=== PATIENT | female | born 1980 | race Caucasian/White ===

== ENCOUNTER 2017-11-09 14:55 | Emergency (ER) | payer SELFPAY ==
[~2017-11-09] VITALS: Ht 165.1 cm; Wt 108.0 kg
[2017-11-09 15:09] VITALS: BP 143/77; PULSE 82; RESP 16; TEMP 97.8; O2SAT 100
[2017-11-09] MEDS ORDERED: SERO100T PO (15:13)
[2017-11-09] MEDS ORDERED: SERO50TA PO (15:13)
[2017-11-09] MEDS ORDERED: ALPR.5 PO (15:13)
[2017-11-09] MEDS ORDERED: TOPI100 PO (15:13)
[2017-11-09] MEDS ORDERED: LORazepam 2 MG/ML VIAL IV PUSH ONE (15:15)
[2017-11-09] MEDS ORDERED: SODIUM CHLOR 0.9% 1000 ML INJ 1,000 ML IV ONE (15:15)
--- NOTE | 2017-11-09 15:41 | PD ---
HPI Chief Complaint: Dizziness Time Seen by Provider: 15:07 Travel History International Travel<30 days: No Contact w/Intl Traveler<30days: No Traveled to known affect area: No History of Present Illness HPI Patient is a 37-year-old female who presents to emergency room with complaints of dizziness. She reports that prior to onset of her symptoms, she took her scheduled dose of Seroquel 100 mg. Patient reports that she has been taking this dose of Seroquel for the past 4 years without an issue. Reports that one hour after taking this medication, she felt lightheaded and dizzy. Patient denies fever/chills. Reports that she has been feeling nauseous. Patient denies chest pain/sob. Denies abdominal pain, no other complaints. PFSH Past Medical History ?: Not LMP: 11/09/17 Social History Tobacco Use: No Allergies-Medications (Allergen,Severity, Reaction): Coded Allergies: Penicillins (Verified Allergy, Unknown, HIVES, 11/09/17) Sulfa (Sulfonamide Antibiotics) (Verified Allergy, Unknown, HIVES, ) erythromycin base (Verified Allergy, Unknown, HIVES, 11/09/17) tramadol (Verified Adverse Reaction, Intermediate, SEIZURES, 11/09/17) Reported Meds & Prescriptions Reported Meds & Active Scripts Active Reported Xanax (Alprazolam) 0.5 Mg Tab 0.5 Mg PO DAILY PRN Topamax (Topiramate) 100 Mg Tab 150 Mg PO BID Seroquel (Quetiapine Fumarate) 50 Mg Tab 50 Mg PO HS Seroquel (Quetiapine Fumarate) 100 Mg Tab 100 Mg PO DAILY Review of Systems General / Constitutional: No: Fever Eyes: No: Diploplia, Blurred Vision, Photophobia, Drainage, Foreign Body Sensation, Pain, Tearing, Visual changes HENT: No: Headaches Cardiovascular: No: Chest Pain or Discomfort Respiratory: No: Shortness of Breath Gastrointestinal: No: Nausea, Vomiting, Abdominal Pain Genitourinary: No: Dysuria Musculoskeletal: No: Pain Skin: No Rash Neurologic: Positive: Dizziness, No: Weakness, Headache Psychiatric: No: Depression Endocrine: No: Polydipsia Hematologic/Lymphatic: No: Easy Bruising Physical Exam Narrative GENERAL: Mild distress SKIN: Focused skin assessment warm/dry. HEAD: Atraumatic. Normocephalic. EYES: Pupils equal and round. No scleral icterus. No injection or drainage. ENT: No nasal bleeding or discharge. Mucous membranes pink and moist. NECK: Trachea midline. No JVD. CARDIOVASCULAR: Regular rate and rhythm. No murmur appreciated. RESPIRATORY: No accessory muscle use. Clear to auscultation. Breath sounds equal bilaterally. GASTROINTESTINAL: Abdomen soft, non-tender, nondistended. Hepatic and splenic margins not palpable. MUSCULOSKELETAL: No obvious deformities. No clubbing. No cyanosis. No edema. NEUROLOGICAL: Awake and alert. No obvious cranial nerve deficits. Motor grossly within normal limits. Normal speech. CN 2-12 grossly intact with no neurological deficits PSYCHIATRIC: Appropriate mood and affect; insight and judgment normal, denies si /hi Data Data Last Documented VS Vital Signs Date Time Temp Pulse Resp B/P (MAP) Pulse Ox O2 Delivery O2 Flow Rate FiO2 11/09/17 15:42 80 17 131/76 (94) 83 18 128/86 (100) 96 18 131/91 (104) 11/09/17 15:10 98 Room Air 11/09/17 15:09 97.8 Orders Orders Complete Blood Count With Diff (11/09/17 15:07) Comprehensive Metabolic Panel (11/09/17 15:07) Ed Urine Pregnancytest Poc (11/09/17 15:07) Sodium Chlor 0.9% 1000 Ml Inj (Ns 1000 M (11/09/17 15:15) Lorazepam Inj (Ativan Inj) (11/09/17 15:15) Orthostatic Vital Signs (11/09/17 15:36) Labs Laboratory Tests Test 11/09/17 15:21 White Blood Count 4.6 TH/MM3 Red Blood Count 4.25 MIL/MM3 Hemoglobin 13.0 GM/DL Hematocrit 39.0 % Mean Corpuscular Volume 91.6 FL Mean Corpuscular Hemoglobin 30.5 PG Mean Corpuscular Hemoglobin Concent 33.3 % Red Cell Distribution Width 12.9 % Platelet Count 168 TH/MM3 Mean Platelet Volume 8.2 FL Neutrophils (%) (Auto) 50.9 % Lymphocytes (%) (Auto) 38.9 % Monocytes (%) (Auto) 7.8 % Eosinophils (%) (Auto) 1.9 % Basophils (%) (Auto) 0.5 % Neutrophils # (Auto) 2.3 TH/MM3 Lymphocytes # (Auto) 1.8 TH/MM3 Monocytes # (Auto) 0.4 TH/MM3 Eosinophils # (Auto) 0.1 TH/MM3 Basophils # (Auto) 0.0 TH/MM3 CBC Comment DIFF FINAL Differential Comment MDM Medical Decision Making Medical Screen Exam Complete: Yes Emergency Medical Condition: Yes Medical Record Reviewed: Yes Interpretation(s) Vital Signs Date Time Temp Pulse Resp B/P (MAP) Pulse Ox O2 Delivery O2 Flow Rate FiO2 11/09/17 15:09 97.8 82 16 143/77 (99) 100 Differential Diagnosis Medication reaction, orthostatic hypotension, dehydration, electrolyte abnormality Narrative Course During the course of the patients emergency department visit, the patients history, examination, and differential diagnosis were reviewed with the patient. 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 The patient had an IV access obtained and blood work sent for analysis. The patient was initially provided IVF as well as IV Ativan ordered The patients laboratory studies were reviewed and remarkable for CBC & BMP Diagram 11/09/17 15:21 Patient reevaluated, patient feeling much better at this time. I reviewed all labs and all studies with patient detail, she will follow-up with her primary care doctor and will return to er as needed Diagnosis Primary Impression: Dizziness Patient Instructions: General Instructions Additional Instructions: Please follow up with your primary care doctor in 2-3 days Return to the ER if symptoms worsen or progress Return to the ER as needed Please drink plenty of fluids Disposition: 01 DISCHARGE HOME Condition: Stable Yolanda Hope DO Nov 09, 2017 15:41
[2017-11-09 15:42] VITALS: BP_SYST 128; BP_SYST 131; BP_DIAS 76; BP_DIAS 86; BP_DIAS 91; RESP 17; RESP 18
[2017-11-09 16:26] LABS: AUTOMATED NEUTROPHIL # 2.3 TH/MM3 (1.8-7.7); BASOPHIL % 0.5 % (0.0-2.0); EOSINOPHIL # 0.1 TH/MM3 (0-0.4); EOSINOPHIL % 1.9 % (0.0-4.0); LYMPH % 38.9 % (9.0-44.0); LYMPHOCYTE # 1.8 TH/MM3 (1.0-4.8); MEAN CELL VOLUME 91.6 FL (80.0-100.0); MEAN CORPUSCULAR HEMOGLOBIN 30.5 PG (27.0-34.0); MEAN CORPUSCULAR HGB CONC 33.3 % (32.0-36.0); MEAN PLATELET VOLUME 8.2 FL (7.0-11.0); MONO % 7.8 % (0.0-8.0); MONOCYTE # 0.4 TH/MM3 (0-0.9); NEUT % 50.9 % (16.0-70.0); PLATELET COUNT 168 TH/MM3 (150-450); RED BLOOD COUNT 4.25 MIL/MM3 (4.00-5.30); RED CELL DISTRIBUTION WIDTH 12.9 % (11.6-17.2); WHITE BLOOD COUNT 4.6 TH/MM3 (4.0-11.0)
[2017-11-09 16:49] LABS: ALBUMIN 3.7 GM/DL (3.4-5.0); ALT (GPT) 27 U/L (10-53); AST (GOT) 17 U/L (15-37); BICARBONATE 27.2 MEQ/L (21.0-32.0); BLOOD UREA NITROGEN 9 MG/DL (7-18); CALCIUM 8.4 MG/DL (8.5-10.1); CHLORIDE 110 MEQ/L (98-107); GLOMERULAR FILTRATION RATE 71 ML/MIN (>89); GLUCOSE,RANDOM 102 MG/DL (74-106); SODIUM (NA) 141 MEQ/L (136-145)
[2017-11-09 16:51] LABS: ALKALINE PHOSPHATASE 68 U/L (45-117); TOTAL BILIRUBIN ADULT 0.4 MG/DL (0.2-1.0); TOTAL PROTEIN 6.7 GM/DL (6.4-8.2)
[2017-11-09 17:00] VITALS: BP 124/77; TEMP 97.8
== END 2017-11-09 17:00 | disposition home or self-care (01) ==
LOC: NEPD 14:55
DX: R42 Dizziness and giddiness (principal); R11.0 Nausea
CPT/HCPCS: 80053; 84703; 85025; 96361; 96374; 99284; J2060; J7030